=== PATIENT | male | born 1930 | race Caucasian/White ===

== ENCOUNTER 2018-01-18 12:51 | Emergency (ER) | payer MEDICARE, BC ==
[~2018-01-18] VITALS: Ht 180.3 cm; Wt 72.6 kg
[~2018-01-18 12:51] MED LIST: ACETAMINOPHEN325 M1 PO; AMLODIPINE BESY10 MG PO; ASPIRIN325 MG PO; CHLORTHALIDONE50 MG PO; LISINOPRIL10 MG PO; PREDNISONE20 MG PO; SIMVASTATIN20 MG PO; STOOL SOFTENER100 MG PO
== END 2018-01-18 15:52 | disposition home or self-care (01) ==
LOC: ED 12:51
DX: M16.11 Unilateral primary osteoarthritis, right hip (principal); I10 Essential (primary) hypertension; Z88.8 Allergy status to other drugs, medicaments and biological substances; Z79.82 Long term (current) use of aspirin; Z79.899 Other long term (current) drug therapy
CPT/HCPCS: 72170; 73502; 99283